=== PATIENT | male | born 1980 | race Caucasian/White ===

== ENCOUNTER 2017-07-20 23:51 | Emergency (ER) | payer BC, OTHER ==
[2017-07-21] MEDS ORDERED: Lidocaine 1%* 5 ML VIAL INJ ONE (00:28)
--- NOTE | 2017-07-21 01:04 | ED ---
Laceration/Wound HPI - HPI Summary HPI Summary: 36-year-old male presents with left index finger laceration today. He states he cut it on some glass. He denies any foreign body. This area continues to bleed. His last tetanus was 2 years ago. He denies any numbness or tingling. He has full range of motion of his finger. 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 - History of Current Complaint Stated Complaint: LT INDEX FINGER LAC Time Seen by Provider: 07/21/17 00:18 Pain Intensity: 4 - Allergy/Home Medications Allergies/Adverse Reactions: Allergies Allergy/AdvReac Type Severity Reaction Status Date / Time No Known Allergies Allergy Verified 07/21/17 00:29 PMH/Surg Hx/FS Hx/Imm Hx Endocrine/Hematology History: Denies: Hx Anticoagulant Therapy Cardiovascular History: Denies: Hx Hypertension - Immunization History Date of Tetanus Vaccine: 2014 Date of Influenza Vaccine: none Infectious Disease History: No Infectious Disease History: Denies: Traveled Outside the [place] in Last 30 Days - Family History Known Family History: Positive: Hypertension - Social History Alcohol Use: Weekly Alcohol Amount: 10 over the span of the week Substance Use Type: Reports: Marijuana Substance Use Comment - Amount & Last Used: weekly Smoking Status (MU): Light Every Day Tobacco Smoker Review of Systems Negative: Fever Negative: Chest Pain Negative: Shortness Of Breath Positive: Other - left index finger laceration All Other Systems Reviewed And Are Negative: Yes Physical Exam Triage Information Reviewed: Yes Vital Signs On Initial Exam: Initial Vitals Temp Pulse Resp BP Pulse Ox 100 F 117 18 163/103 100 07/20/17 23:54 07/20/17 23:54 07/20/17 23:54 07/20/17 23:54 07/20/17 23:54 Vital Signs Reviewed: Yes Appearance: Positive: Well-Appearing Skin: Positive: Warm, Dry, Other - 1-1/2 cm laceration on left index finger at DIP Head/Face: Positive: Normal Head/Face Inspection Eyes: Positive: Normal, Conjunctiva Clear Respiratory/Lung Sounds: Positive: Clear to Auscultation, Breath Sounds Present Cardiovascular: Positive: Normal, RRR Musculoskeletal: Positive: Strength/ROM Intact - left hand, Other - good pulses , capillary <2 secs Neurological: Positive: Normal Psychiatric: Positive: Normal Procedures - Laceration/Wound Repair 1 Location: Other - left index finger Description: Linear Anesthesia: Local, 1.0% Length, Depth and Shape: 1 and 1/2cm laceration Betadine Prep?: Yes Irrigated w/ Saline (ccs): 500 Laceration/Wound Explored: no foreign body removed Closure: Single Layer Suture Type: Prolene - 4-0 Number of Sutures: 3 Layer Closure?: No Sterile Dressing Applied?: Yes - telfa, coband pressure dressing Diagnostics - Vital Signs Vital Signs Temp Pulse Resp BP Pulse Ox 07/20/17 23:54 100 F 117 18 163/103 100 - Laboratory Lab Statement: Any lab studies that have been ordered have been reviewed, and results considered in the medical decision making process. Laceration Repair Course/Dx - Course Course Of Treatment: 36-year-old male presents with left index finger laceration today. He states he cut it on some glass. He denies any foreign body. This area continues to bleed. His last tetanus was 2 years ago. He denies any numbness or tingling. He has full range of motion of his finger. 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 On exam has a centimeter laceration that appears to have cut digital artery is spurting blood. Placed tourniquet area and place [address] in pressure dressing and no active bleeding at this time. We will have keep area and pressure dressing for the next couple days and then placed metal splint on the area. Patient understands , agrees plan. - Differential Dx Differental Diagnoses: Abrasion, Avulsion, Laceration - Clinical Impression Provider Diagnoses: Laceration of left index finger Discharge - Discharge Plan Condition: Good Disposition: HOME Patient Education Materials: Care For Your Stitches (ED) Referrals: No Primary Care Phys,NOPCP [Primary Care Provider] - Additional Instructions: Keep area in splint, change dressing once a day Keep area clean and dry for 24 hours Take Tylenol or ibuprofen for pain every 6 hours Return to ED or primary for suture removal in 10-14 days Return to ED if develop signs of infection such as fever, spreading redness, or pus formation
[2017-07-21 01:41] VITALS: BP 150/95
== END 2017-07-21 01:40 | disposition home or self-care (01) ==
LOC: ED 23:51
DX: S61.211A Laceration without foreign body of left index finger without damage to nail, initial encounter (principal); W25.XXXA Contact with sharp glass, initial encounter; Y92.9 Unspecified place or not applicable; F17.210 Nicotine dependence, cigarettes, uncomplicated
CPT/HCPCS: 12001; 99282